=== PATIENT | female | born 1945 | race Caucasian/White ===

== ENCOUNTER → 2017-07-16 | Outpatient (CLI) | payer MEDICARE, BC ==
[~2017-07-16] MED LIST: ASPI-757 PO; ESTR1PAT72 TD; MULT1TAB64 PO; NAPR220C12 PO; PANT40TA65 PO; PRAV10TA45 PO
--- NOTE | 2017-07-17 09:59 | RADIOLOGY IMAGING REPORT ---
FACILITY: [facility] PATIENT NAME: LARON BAUM : [id number] MR: [id number] V: [id number] EXAM DATE: [id number] ORDERING PHYSICIAN: GEOVANY NORMAN TECHNOLOGIST: Aurora Prather PROCEDURE:BILATERAL DIGITAL SCREENING MAMMOGRAM WITH CAD ASSISTED INTERPRETATION & 3D TOMOSYNTHESIS COMPARISON:Prior mammograms 07/10/16, 07/02/15, 06/27/14, 06/10/13, 05/03/12. INDICATIONS:SCREENING FINDINGS: Moderately dense fibroglandular tissue is seen throughout the breasts. The parenchymal pattern has remained stable allowing for difference in mammographic technique & patient positioning. There is no evidence of malignant appearing mass, malignant appearing calcifications or other secondary sign of malignancy in either breast. DIAGNOSTIC CATEGORY 2--BENIGN FINDING. RECOMMENDATIONS: ROUTINE MAMMOGRAM AND CLINICAL EVALUATION. IMPRESSION: BIRADS 2: Benign finding No significant abnormality is seen. Dictated by: Tina Saldana M.D. on 07/16/2017 at 16:22 Transcribed by: NITA on 07/17/2017 at 7:30 Approved by: Tina Saldana M.D. on 07/17/2017 at 9:58 [facility]
== END ==
LOC: MAMO 01:28
PROVIDERS: ATTEND Obstetrics & Gynecology
DX: Z12.31 Encounter for screening mammogram for malignant neoplasm of breast (principal)
CPT/HCPCS: 77063; 77067

== ENCOUNTER → 2018-07-19 | Outpatient (CLI) | payer MEDICARE, BC ==
--- NOTE | 2018-07-20 08:21 | RADIOLOGY IMAGING REPORT ---
FACILITY: [facility] PATIENT NAME: LARON BAUM : [id number] MR: [id number] V: [id number] EXAM DATE: ORDERING PHYSICIAN: SKYLAR SARGENT TECHNOLOGIST: Chelita Durham PROCEDURE:BILATERAL DIGITAL SCREENING MAMMOGRAM WITH CAD ASSISTED INTERPRETATION & 3D TOMOSYNTHESIS COMPARISON:Prior mammograms 07/16/17, 07/10/16, 07/02/15, 06/27/14, 06/10/13. INDICATIONS:SCREENING FINDINGS: The breasts are heterogeneously dense which can obscure small masses. The parenchymal pattern has remained stable allowing for difference in mammographic technique & patient positioning. DIAGNOSTIC CATEGORY 1--NEGATIVE. RECOMMENDATIONS: ROUTINE MAMMOGRAM AND CLINICAL EVALUATION. IMPRESSION: BIRADS 1: Negative. No significant abnormality is seen. Dictated by: Tina Saldana M.D. on 07/19/2018 at 17:16 Transcribed by: NITA on 07/20/2018 at 8:15 Approved by: Tina Saldana M.D. on 07/20/2018 at 8:20 [facility]
== END ==
LOC: MAMO 02:20
PROVIDERS: ATTEND Nurse Practitioner Family
DX: Z12.31 Encounter for screening mammogram for malignant neoplasm of breast (principal)
CPT/HCPCS: 77063; 77067